=== PATIENT | male | born 1965 ===

== ENCOUNTER → 2021-11-24 13:13 | Outpatient (CLI) | payer OTHER, SELFPAY ==
[2021-11-24 19:16] LABS: Add Manual Diff / Slide Review NO; Basophils Absolute Auto 0 /uL (0-100); Basophils Percent Auto 0.3 % (0-2); Eosinophils Absolute Auto 200 /uL (0-450); Eosinophils Percent Auto 1.2 % (2-4); Hematocrit 47.4 % (41-53); Hemoglobin 15.9 g/dL (13.5-17.5); Lymphocytes Absolute Auto 1200 /uL (1100-4500); Lymphocytes Percent Auto 8.2 % (25-40); Mean Corpuscular HGB Conc 33.7 % (30-36); Mean Corpuscular Hemoglobin 30.7 PG (26-34); Mean Corpuscular Volume 91.1 fL (80-100); Monocytes Absolute Auto 1500 /uL (0-900); Monocytes Percent Auto 10.2 % (3-14); Neutrophils Absolute Auto 11600 /uL (1500-7000); Neutrophils Percent Auto 80.1 % (50-75); Platelet Count 250 X10^3/uL (150-400); Red Cell Distribution Width 13.6 % (11.6-14.8); White Blood Cell Count 14.5 X10^3/uL (4.5-11.0)
[2021-11-24 19:46] LABS: Prostate Specific Antigen Scrn 1.07 ng/mL (0.1-4.0)
== END ==
PROVIDERS: PCP Family Medicine; Visit Provider Family Medicine
DX: R10.9 Unspecified abdominal pain (principal); Z12.5 Encounter for screening for malignant neoplasm of prostate; N50.812 Left testicular pain
CPT/HCPCS: 85025; 87086; G0103

== ENCOUNTER → 2021-12-01 12:23 | Outpatient (CLI) | payer OTHER, SELFPAY ==
[2021-12-01 19:06] LABS: Appearance Urine UA CLEAR; Bilirubin Urine UA NEGATIVE (NEGATIVE); Color Urine UA YELLOW; Glucose Urine UA NEGATIVE (Negative); Ketones Urine UA NEGATIVE (NEGATIVE); Leukocyte Esterase Urine UA NEGATIVE (NEGATIVE); Nitrite Urine UA NEGATIVE (Negative); Occult Blood Urine UA NEGATIVE (Negative); Protein Urine UA NEGATIVE (Negative); Specific Gravity Urine UA <=1.005 (1.000-1.035); Urobilinogen Urine UA 0.2 E.U./dL (0.2); pH Urine UA 6.5 (4.5-8.0)
[2021-12-01 19:12] LABS: Amylase 78 U/L (30-110)
[2021-12-01 19:14] LABS: Bacteria Urine None Seen; Culture Indicated Urine Cult Not Indicated; Hematocrit 46.3 % (41-53); Mean Corpuscular HGB Conc 34.5 % (30-36); Mean Corpuscular Hemoglobin 31.1 PG (26-34); Mean Corpuscular Volume 90.2 fL (80-100); Platelet Count 295 X10^3/uL (150-400); RBC Urine None Seen (0-5/HPF); Red Blood Cell Count 5.13 X10^6/uL (4.5-5.9); Urine Comments Microscopic Normal; WBC Urine None Seen (0-5/HPF); White Blood Cell Count 5.8 X10^3/uL (4.5-11.0)
[2021-12-01 19:34] LABS: Neutrophils Absolute Manual 3712 /uL (3000-5900); Total Cells Counted 100
[2021-12-01 19:35] LABS: RBC Morphology Normal Morphology
== END ==
PROVIDERS: PCP Family Medicine; Visit Provider Family Medicine
DX: D72.829 Elevated white blood cell count, unspecified (principal); R31.9 Hematuria, unspecified
CPT/HCPCS: 81001; 82150; 85025